=== PATIENT | female | born 1980 | race African-American/Black ===

== ENCOUNTER 2021-08-16 03:59 | Emergency (ER) | payer MEDICAID ==
[~2021-08-16] VITALS: Ht 170.2 cm; Wt 79.4 kg
[~2021-08-16 03:59] MED LIST: BACTRIM DS TAB1 EACH PO; CARAFATE 1 GM TA1 G1 PO; CIPROFLOXACIN500 M1 PO; FLAGYL500 MG PO; FLOMAX0.4 MG PO; GLYCOLAX POWDER17 G1 PO; HYDROCODON-ACE1 EAC7 PO; HYDROCODONE-AP1 EAC6 PO; HYDROCODONE-APA1 TA1 PO; IRON236 MG PO; IRON325 PO; LORTAB 7.5/5001 TA1 PO; NOHOMEMEDICATIONS; NORCO 5-325 TA1 EACH; NORCO 5-325 TA1 EACH PO; PENICILLIN VK500 MG PO; PHENERGAN 25 MG25 M1 PO; PRENATAL VITAM1 EAC5 PO; ZOFRAN ODT4 MG DISSOLVE; ZOFRAN ODT4 MG PO
[2021-08-16 04:37] LABS: URINE BILIRUBIN NEGATIVE (Negative); URINE BLOOD NEGATIVE (Negative); URINE CLARITY CLEAR; URINE COLOR YELLOW; URINE GLUCOSE-RANDOM NEGATIVE (Negative); URINE KETONES NEGATIVE (Negative); URINE LEUKOCYTES-REFLEX 1+ (Negative); URINE NITRITE-REFLEX NEGATIVE (Negative); URINE PROTEIN NEGATIVE (Negative)
[2021-08-16 04:51] LABS: ABSOLUTE BASOPHILS 0.1 thou/uL (0.0-0.2); ABSOLUTE EOSINOPHILS 0.1 thou/uL (0.0-0.7); ABSOLUTE MONOCYTES 0.7 thou/uL (0.0-1.2); ABSOLUTE NEUTROPHILS 2.9 thou/uL (1.6-8.1); BASOPHILS 1.3 %; HEMATOCRIT 37.9 % (37.0-47.0); HEMOGLOBIN 12.5 gm/dL (12.0-15.0); LYMPHOCYTES 35.3 %; MCH 26.8 pg (26.0-34.0); MCHC 32.9 g/dL (28.0-37.0); MCV 81.4 fL (80.0-100.0); MONOCYTES 11.6 %; MPV 7.7 fl. (7.2-11.1); NUCLEATED RBCS 0 /100WBC; PLATELET COUNT* 319 thou/uL (150-400); POLYS 49.8 %; RBC 4.66 mil/uL (4.20-5.00); RDW-CV 14.5 % (10.5-14.5); WBC 5.7 thou/uL (4.0-11.0)
[2021-08-16 05:25] LABS: CALCIUM 8.5 mg/dL (8.5-10.1); CREATININE 0.7 mg/dL (0.6-1.3); POTASSIUM 3.2 mmol/L (3.5-5.1)
[2021-08-16 05:30] LABS: ALBUMIN 3.4 g/dL (3.4-5.0); TOTAL BILIRUBIN 0.3 mg/dL (<0.1-1.0); TOTAL PROTEIN 7.9 g/dL (6.4-8.2)
[2021-08-16 06:10] LABS: SQUAMOUS >10 Many /LPF (0-3); URINE RBC 0-2 Rare /HPF (0-2); URINE WBC-REFLEX 6-15 Few /HPF (0-5)
[2021-08-16 06:11] LABS: CASTS None Seen /LPF (None Seen); CRYSTALS None Seen /LPF (None Seen); MUCUS 4-6 Moderate strn/LPF (None Seen); YEAST-REFLEX Present (None Seen)
[2021-08-16] MEDS ORDERED: ONE-A-DAY PREN1 EAC2 PO (06:53)
[2021-08-16 08:00] VITALS: BP 99/54
== END 2021-08-16 08:00 | disposition home or self-care (01) ==
LOC: M.ERS 03:59
PROVIDERS: Personal Emergency Response Attendant
DX: O26.891 Other specified pregnancy related conditions, first trimester (principal); R10.2 Pelvic and perineal pain; Z3A.01 Less than 8 weeks gestation of pregnancy; Z90.49 Acquired absence of other specified parts of digestive tract